=== PATIENT | male | born 1985 | race Hispanic/Latino ===

== ENCOUNTER 2024-08-02 11:39 | Emergency (ER) | payer OTHER ==
[~2024-08-02] VITALS: Ht 172.7 cm; Wt 87.9 kg
[2024-08-02] MEDS ORDERED: TIZA4CAP PO (13:40)
[2024-08-02] MEDS ORDERED: MEDR4PAK PO (13:40)
[2024-08-02] MEDS: KETOROLAC 30 MG/ML 1ML VIAL IM ONE (13:41)
[2024-08-02 13:49] VITALS: BP 149/88; TEMP 97.4; O2SAT 99
== END 2024-08-02 13:49 | disposition home or self-care (01) ==
LOC: M ED 11:39
DX: S46.011A Strain of muscle(s) and tendon(s) of the rotator cuff of right shoulder, initial encounter (principal); X50.0XXA Overexertion from strenuous movement or load, initial encounter; Y92.89 Other specified places as the place of occurrence of the external cause; Y93.89 Activity, other specified; Y99.0 Civilian activity done for income or pay; Z79.899 Other long term (current) drug therapy
CPT/HCPCS: 73030; 96372; 99283; J1885